=== PATIENT | female | born 1970 | race Caucasian/White ===

== ENCOUNTER → 2020-06-29 16:17 | Outpatient (CLI) | payer BC, SELFPAY ==
--- NOTE | ~2020-06-29 | MM_ITS ---
EXAMINATION: MM screening [facility] BI w [place] HISTORY: Screening mammogram TECHNIQUE: Craniocaudal and mediolateral oblique 3-D tomosynthesis images were obtained and synthetic 2-D images were generated. CAD analysis was submitted and interpreted. COMPARISON: No prior mammogram is available for comparison at this institution. BREAST PARENCHYMAL COMPOSITION: There are scattered areas of fibroglandular density. FINDINGS: Benign appearing 6.5 mm left axillary tail lymph node. There is no evidence of suspicious m ass, calcification, or architectural distortion to suggest malignancy in either breast. There has bee n no suspicious interval change. IMPRESSION: 1. No mammographic evidence of malignancy. 2. Recommend routine screening mammography in one year. BI-RADS Category 2: Benign finding(s). Reviewed, dictated and finalized at location A. F SERVICES MANAGER
== END ==
PROVIDERS: Visit Provider Obstetrics & Gynecology
DX: Z12.31 Encounter for screening mammogram for malignant neoplasm of breast (principal)
CPT/HCPCS: 77063; 77067

== ENCOUNTER 2023-03-05 14:57 | Outpatient (CLI) | payer BC, SELFPAY | END 2023-03-05 14:58 | disposition home or self-care (01) | LOC: ANHGOSHLAB 14:59 | PROVIDERS: PCP Family Medicine; Visit Provider Nurse Practitioner | DX: R31.9 Hematuria, unspecified (principal) | CPT/HCPCS: 87086 ==

== ENCOUNTER 2023-05-12 01:24 | Day surgery (SDC) | payer BC, SELFPAY ==
[2023-04-29 08:40] VITALS: BMI 37.6
--- NOTE | 2023-05-08 13:59 | SUR.PREOP ---
Patient called regarding upcoming procedure. Reviewed preop instructions, appointment times, and procedure prep.
[2023-05-12 11:15] VITALS: BP 136/96; PULSE 98; RESP 20; TEMP 36.5; O2SAT 100; BMI 36.1
[2023-05-12] MEDS: LACTATED RINGERS 1,000 ML 150 ML IV CONT (11:24)
--- NOTE | 2023-05-12 11:36 | PM.HPGS ---
History of Present Illness History of Present Illness Consent: Risks, benefits, and alternatives have been discussed and questions answered. Patient agrees to proceed with procedure. Chief complaint: BRBPR, positive cologuard test Narrative: Christine Arcos is a 53 year old female Presents for colonoscopy. Patient states her bowel habits are normal. On 1 occasion noticed a spot of bright red blood. She denies any abdominal pain. She has had no rectal pain. Family history is noncontributory. Recent Cologuard test was found to be positive. Review of Systems Review of Systems: Review of systems noncontributory. [facility] Past Medical History Medical History Migraine Surgical History Surgical History History of tonsillectomy Family History Family History Mother Hypertension Cervical cancer Social History Social History Smoking status: Never smoker Alcohol intake: current Alcohol use details: occasionally Substance use: never Substance use type: does not use Lack of Transportation: No Lack of Food: Never True Current Housing: I Have Housing Concerned About Future Housing: No Difficulty Paying Gas/Electric Bills: No Currently Unemployed: No Education: Trade/Vocational Certificate Difficulty w/ Childcare or Family Care: No Living arrangements: with family Meds Home Medications and Allergies Home Medications Medication Instructions Recorded Confirmed Type alprazolam 0.25 mg tablet 0.25 mg PO TID PRN anxiety #30 tabs 07/21/22 04/29/23 Rx lisinopril 20 mg tablet 20 mg PO DAILY #90 tabs 04/08/23 04/29/23 Rx semaglutide 0.25 mg or 0.5 mg (2 0.25 mg (0.368 mL) subcut WEEKLY 05/04/23 05/12/23 Rx mg/3 mL) subcutaneous pen injector #3 mL Allergies Allergy/AdvReac Type Severity Reaction Status Date / Time No Known Allergies Allergy Unknown Verified 05/12/23 11:14 Vital Signs Vital Signs - 24 hr 05/12/23 11:15 Temperature 97.7 F Pulse Rate 98 Respiratory Rate 20 Blood Pressure 136/96 H Pulse Oximetry 100 Oxygen Delivery Room Air Exam Narrative: Physical exam reveals patient to be alert. Vital signs stable. HEENT exam is unremarkable. Patient is anicteric. Lungs are clear to auscultation and percussion. Heart is without murmur or extra sounds. Abdomen bowel sounds are present soft nontender with no organomegaly. Digital external rectal exam is normal. Assessment and Plan Assessment and plan (1) Screening for colon cancer: Code(s): Z12.11 - Encounter for screening for malignant neoplasm of colon Status: Acute Assessment and Plan: Patient presents for neoplasia screening. She was found to have a positive Cologuard test. (2) Rectal bleeding: Code(s): K62.5 - Hemorrhage of anus and rectum Status: Acute Assessment and Plan: Patient noticed bright red blood per rectum on 1 occasion. Plan for high-fiber diet. Colonoscopy to exclude anything besides hemorrhoids.
--- NOTE | 2023-05-12 12:33 | WPDANESEPPF ---
Anes - Initial Pre Proc Eval Procedure: Operation Date: 05/12/23 12:30 Proposed Procedures p Colonoscopy - Adam Nj MD Date/Time: 05/12/23 12:33 Surgeon: Adam Nj MD Pre Op Diagnosis: BRBPR, positive cologuard test Patient Data Age: 53 Gender: F Height: 1.7 m Weight: 104.5 kg Last Vital Signs Temp 97.7 F 05/12/23 11:15 Pulse 98 05/12/23 11:15 Resp 20 05/12/23 11:15 BP 136/96 H 05/12/23 11:15 Pulse Ox 100 05/12/23 11:15 O2 Del Method Room Air 05/12/23 11:15 Allergies Allergy/AdvReac Type Severity Reaction Status Date / Time No Known Allergies Allergy Unknown Verified 05/12/23 11:14 Home Medications Medication Instructions Recorded Confirmed Type alprazolam 0.25 mg tablet 0.25 mg PO TID PRN anxiety #30 tabs 07/21/22 04/29/23 Rx lisinopril 20 mg tablet 20 mg PO DAILY #90 tabs 04/08/23 04/29/23 Rx semaglutide 0.25 mg or 0.5 mg (2 0.25 mg (0.368 mL) subcut WEEKLY 05/04/23 05/12/23 Rx mg/3 mL) subcutaneous pen injector #3 mL Patient hx anesthesia problems: none Family hx anesthesia problems: none Results Review: All pre-operative results and documents have been reviewed as part of the pre-operative evaluation. [facility] Past Medical History Medical History Migraine Surgical History Surgical History History of tonsillectomy Family History Family History Mother Hypertension Cervical cancer Social History Social History Smoking status: Never smoker Alcohol intake: current Alcohol use details: occasionally Substance use: never Substance use type: does not use Lack of Transportation: No Lack of Food: Never True Current Housing: I Have Housing Concerned About Future Housing: No Difficulty Paying Gas/Electric Bills: No Currently Unemployed: No Education: Trade/Vocational Certificate Difficulty w/ Childcare or Family Care: No Living arrangements: with family Anes - Eval Final PreProcedure Day of Procedure 05/12/23 12:33 Patient weight: obese Heart: regular rate and rhythm Lungs: clear to auscultation Airway: Mallampati scale class III Neurological: alert and oriented Last oral intake: >/= 8 hours ASA classification: II Emergent: no Anesthetic plan: proceed Anesthesia type and monitoring: general GIVS and standard monitoring Results Review: All pre-operative results and documents have been reviewed as part of the pre-operative evaluation. Informed Consent: The patient's anesthetic plan and its attendant risks and benefits were discussed with the patient/family/POA. Questions were solicited and answers provided to the satisfaction of the patient/family/POA.
[2023-05-12 13:02] VITALS: BP 108/61; PULSE 78; RESP 17; O2SAT 95
[2023-05-12 13:12] VITALS: BP 117/79; PULSE 76; RESP 18; O2SAT 97
[2023-05-12 13:22] VITALS: BP 117/83; PULSE 73; RESP 18; O2SAT 99
== END 2023-05-12 13:35 | disposition home or self-care (01) ==
PROVIDERS: PCP Family Medicine; Visit Provider Internal Medicine Gastroenterology
PROC: 0DJD8ZZ Inspection of Lower Intestinal Tract, Via Natural or Artificial Opening Endoscopic (ICD-10-PCS; CPT 45378; principal; 2023-05-12 12:30)
DX: Z12.11 Encounter for screening for malignant neoplasm of colon (principal); K62.1 Rectal polyp; K64.8 Other hemorrhoids; R19.5 Other fecal abnormalities; Z79.85 Long-term (current) use of injectable non-insulin antidiabetic drugs; E66.9 Obesity, unspecified; Z68.36 Body mass index [BMI] 36.0-36.9, adult
CPT/HCPCS: 45385; 88305; J2704; J7120

== ENCOUNTER 2023-11-26 16:18 | Outpatient (CLI) | payer BC, SELFPAY ==
--- NOTE | ~2023-11-26 | US_ITS ---
EXAMINATION: US pelvic complete w TV DATE: 11/26/2023 17:58 INDICATION: R10.2 - Pelvic and perineal pain TECHNIQUE: Multiple transabdominal and endovaginal sonographic images of the pelvis were obtained. COMPARISON: None. FINDINGS: Uterus: 8.4 x 4.1 x 5.7 cm. Multiple heterogeneous areas within the uterine parenchyma, the largest m easures up to 2.6 cm and contains calcifications, likely fibroids. Endometrial complex measures 3 mm. Right Ovary: Not visualized. No adnexal mass. Left Ovary: Not visualized. No adnexal mass. There is no free fluid in the pelvis. IMPRESSION: Multiple intramural fibroids measuring up to 2.6 cm. Bilateral ovaries not visualized. Reviewed, dictated and finalized at location K. IMPRESSION: Multiple intramural fibroids measuring up to 2.6 cm. Bilateral ovaries not visu alized.
== END 2023-11-26 16:19 | disposition home or self-care (01) ==
LOC: ANHIMG 16:19
PROVIDERS: PCP Family Medicine; Visit Provider Nurse Practitioner Family
DX: R10.2 Pelvic and perineal pain (principal); D25.9 Leiomyoma of uterus, unspecified
CPT/HCPCS: 76830; 76856

== ENCOUNTER 2024-03-22 16:09 | Outpatient (CLI) | payer BC, SELFPAY ==
--- NOTE | ~2024-03-22 | MM_ITS ---
EXAMINATION: MM screening [facility] BI w [place] HISTORY: Screening TECHNIQUE: Craniocaudal and mediolateral oblique 3-D tomosynthesis images were obtained and synthetic 2-D images were generated. CAD analysis was submitted and interpreted. COMPARISON: Comparison to multiple prior studies sequentially, with oldest reviewed study dated 06/29. BREAST PARENCHYMAL COMPOSITION: Not dense: There are scattered areas of fibroglandular density. FINDINGS: There is no evidence of suspicious mass, calcification, or architectural distortion to sugg est malignancy in either breast. There has been no suspicious interval change. IMPRESSION: 1. No mammographic evidence of malignancy. 2. Recommend routine screening mammography in one year. BI-RADS Category 1: Negative Reviewed, dictated and finalized at location B.
== END 2024-03-22 16:10 | disposition home or self-care (01) ==
LOC: MICIMG 16:10
PROVIDERS: PCP Family Medicine; Visit Provider Nurse Practitioner Family
DX: Z12.31 Encounter for screening mammogram for malignant neoplasm of breast (principal)
CPT/HCPCS: 77063; 77067

== ENCOUNTER 2024-09-14 10:34 | Outpatient (CLI) | payer BC, SELFPAY ==
--- NOTE | ~2024-09-14 | XR_ITS ---
Right Shoulder Technique: AP and scapular Y views were obtained. Clinical History: Pain Findings: No fracture or dislocation is seen. Osseous alignment is anatomic. The glenohumeral and acr omioclavicular joint spaces are preserved. Soft tissues are unremarkable. Impression: Unremarkable right shoulder radiographs. Reviewed, dictated and finalized at [facility]. Impression: Unremarkable right shoulder radiographs.
== END 2024-09-14 10:35 | disposition home or self-care (01) ==
LOC: MICIMG 10:36
PROVIDERS: PCP Family Medicine; Visit Provider Nurse Practitioner
DX: M25.511 Pain in right shoulder (principal)
CPT/HCPCS: 73030

== ENCOUNTER 2024-09-21 10:57 | Outpatient (RCR) | payer BC, SELFPAY ==
--- NOTE | 2024-09-21 11:54 | OPREHPOC ---
Outpatient Therapy Plan of Care This is a Multidisciplinary Plan of Care that may contain components documented by all disciplines (PT, OT, and ST.) PT Problem 1 PT Problem #1 Knowledge Deficit PT Goal 1 Goal / Goal Update The patient will be independent in a home exercise program. Target Visit 3 PT Problem 2 PT Problem #2 Pain PT Goal 1 Goal / Goal Update The patient will report no greater than 2/10 right shoulder pain with reaching into combined abduction and ER. Target Visit 10 PT Problem 3 PT Problem #3 Impaired Functional Mobility PT Goal 1 Goal / Goal Update The patient will demonstrate 10% or less self perceived disability per the Quick DASH questionnaire. Target Visit 10 PT Problem 4 PT Problem #4 Impaired Strength PT Goal 1 Goal / Goal Update The patient will demonstrate 5/5 right shoulder strength without pain elicited in order to return to PLOF. Target Visit 10
--- NOTE | 2024-09-21 11:54 | PTOPEVAL1 ---
Assessment and note entered by Candice Ontiveros, PT Evaluation Information Assessment Status Evaluation ICD-10 Condition Codes (PT) Pain in right shoulder M25.511 Onset 09/14/24 Subjective Information Christine Arcos reports she started having pain in her right shoulder about 6 months ago for unknown reasons. She has tried getting a massage and going to chiropractor without relief. She notes worse pain when she tries to push with a wide dairy chemist while performing weight lifting activities as well as when she moves her arm to side and up combined. She went to her doctor and x-rays were performed. The x-rays were normal. She has also tried a pain medication without relief. Reported Pain Level Pain Score 0: Self Report Assessment PT Clinical Summary Christine Arcos presents with right shoulder pain with an insidious onset approximately 6 months ago . She has difficulty with pushing with a wide dairy chemist and reaching to the side in an abduction/ER movement. She objectively demonstrates decreased posture, tenderness over the right bicipital groove, painful arc, decreased right shoulder strength, and positive special tests indicating bicep and rotator cuff tendonitis. She will benefit from skilled PT to address these limitations. Plan of Care Interventions Electrical Stimulation,Hot Pack/Cold Pack,Manual Therapy,Neuro Re-education,Patient/Caregiver Education,Therapeutic Activities,Therapeutic Exercise PT Services Indicated Yes Treatment Frequency and 2 times a week for 10 visits Duration These treatments will address the objective and functional deficits as defined above. The patient will be advanced safely and appropriately in order for the patient to progress towards his/her prior level of function. Additional exercises will be introduced and as well as a comprehensive home exercise program upon discharge, if needed, ?to ensure carryover of functional gains achieved in the clinic. This treatment plan has been reviewed and agreement upon by the patient.
--- NOTE | 2024-09-28 11:57 | PTOPEVAL1 ---
Assessment and note entered by Candice Ontiveros, PT Evaluation Information Assessment Status Evaluation ICD-10 Condition Codes (PT) Pain in right shoulder M25.511 Onset 09/14/24 Subjective Information Christine Arcos reports she started having pain in her right shoulder about 6 months ago for unknown reasons. She has tried getting a massage and going to chiropractor without relief. She notes worse pain when she tries to push with a wide grill prep cook while performing weight lifting activities as well as when she moves her arm to side and up combined. She went to her doctor and x-rays were performed. The x-rays were normal. She has also tried a pain medication without relief. Reported Pain Level Pain Score 5: Self Report Assessment PT Clinical Summary Christine Arcos presents with right shoulder pain with an insidious onset approximately 6 months ago . She has difficulty with pushing with a wide grill prep cook and reaching to the side in an abduction/ER movement. She objectively demonstrates decreased posture, tenderness over the right bicipital groove, painful arc, decreased right shoulder strength, and positive special tests indicating bicep and rotator cuff tendonitis. She will benefit from skilled PT to address these limitations. Plan of Care Interventions Electrical Stimulation,Hot Pack/Cold Pack,Manual Therapy,Neuro Re-education,Patient/Caregiver Education,Therapeutic Activities,Therapeutic Exercise PT Services Indicated Yes Treatment Frequency and 2 times a week for 10 visits Duration These treatments will address the objective and functional deficits as defined above. The patient will be advanced safely and appropriately in order for the patient to progress towards his/her prior level of function. Additional exercises will be introduced and as well as a comprehensive home exercise program upon discharge, if needed, ?to ensure carryover of functional gains achieved in the clinic. This treatment plan has been reviewed and agreement upon by the patient.
--- NOTE | 2025-01-10 08:51 | PCPTNOTE ---
Pt was last seen on 10/19/24 and has not returned. She is discharged from skilled PT. -Candice Ontiveros, PT
== END 2024-12-20 23:59 | disposition home or self-care (01) ==
LOC: CHSPT 10:57
PROVIDERS: Visit Provider Nurse Practitioner
DX: M25.511 Pain in right shoulder (principal)
CPT/HCPCS: 97014; 97110; 97112; 97140; 97150; 97161; G0283

== ENCOUNTER 2025-04-21 15:07 | Outpatient (CLI) | payer BC, SELFPAY ==
--- NOTE | ~2025-04-21 | MM_ITS ---
EXAMINATION: MM screening [facility] BI w [place] HISTORY: Screening TECHNIQUE: Craniocaudal and mediolateral oblique 3-D tomosynthesis images were obtained and synthetic 2-D images were generated. CAD analysis was submitted and interpreted. COMPARISON: Comparison to multiple prior studies sequentially, with oldest reviewed study dated 06/29/2020. BREAST PARENCHYMAL COMPOSITION: Not dense: There are scattered areas of fibroglandular density. FINDINGS: There is no evidence of suspicious mass, calcification, or architectural distortion to suggest malignancy in either breast. There has been no suspicious interval change. IMPRESSION: 1. No mammographic evidence of malignancy. 2. Recommend routine screening mammography in one year. BI-RADS Category 1: Negative Reviewed, dictated and finalized at location O. IR COIL WINDER
== END 2025-04-21 15:08 | disposition home or self-care (01) ==
LOC: MICIMG 15:08
PROVIDERS: PCP Family Medicine; Visit Provider Nurse Practitioner Family
DX: Z12.31 Encounter for screening mammogram for malignant neoplasm of breast (principal)
CPT/HCPCS: 77063; 77067